=== PATIENT | female | born 1955 | race American Indian/Alaskan Native ===

== ENCOUNTER 2020-02-17 08:41 | Outpatient (CLI) | payer MEDICARE ==
[2020-02-17 09:30] LABS: Basophils # (Auto) 0.1 K/mm3 (0.0-0.1); Basophils % (Auto) 0.5 % (0.0-1.8); Eosinophils # (Auto) 0.1 K/mm3 (0.0-0.4); Eosinophils % (Auto) 0.6 % (0.0-4.3); Hematocrit 39.6 % (30.3-42.9); Lymphocytes # (Auto) 3.5 K/mm3 (1.2-5.4); Lymphocytes % (Auto) 32.2 % (13.4-35.0); Mean Corpuscular HGB Conc 35 % (30-34); Mean Corpuscular Volume 79 fl (79-97); Monocytes # (Auto) 0.6 K/mm3 (0.0-0.8); Monocytes % (Auto) 5.7 % (0.0-7.3); Platelet Count 216 K/mm3 (140-440); Red Blood Count 5.02 M/mm3 (3.65-5.03); Red Cell Distribution Width 15.8 % (13.2-15.2)
[2020-02-17 09:45] LABS: Alanine Aminotransferase 36 units/L (7-56); Albumin 4.5 g/dL (3.9-5); BUN/Creatinine Ratio 12; Blood Urea Nitrogen 11 mg/dL (7-17); Calcium 10.6 mg/dL (8.4-10.2); Chol/HDL Ratio 3.61 %; HDL Cholesterol 55 mg/dL (40-59); Hemolysis Index 43; LDL Cholesterol,Direct 103 mg/dL (50-130)
[2020-02-17 10:11] LABS: ABG Base Excess 1.9 mmol/L (-2.0-3.0); ABG HCO3 25.9 mmol/L (20.0-26.0); ABG Methemoglobin 0.6 % (0.0-1.5); ABG Oxygen Saturation 90.4 % (95.0-99.0); ABG PCO2 38.4 mm Hg; ABG PH 7.446 pH Units (7.350-7.450); ABG PO2 53.5 mm Hg (80.0-90.0)
--- NOTE | 2020-02-17 13:39 | XRay Report ---
CHEST 2 VIEWS INDICATION: POSSIBLE COPD. COMPARISON: None. FINDINGS: Support devices: None. Heart: Within normal limits. Pulmonary vasculature: Normal. Lungs/pleura: The lungs are mildly hyperexpanded. No airspace disease or pleural effusion. No pneumo thorax. Additional findings: None. IMPRESSION: 1. No acute findings. 2. Mild pulmonary hyperinflation. Signer Name: Ivan Pitts MD Signed: 02/17/2020 1:34 PM Workstation Name: [id number]
== END 2020-02-17 08:42 | disposition home or self-care (01) ==
LOC: XRAY 08:41
PROVIDERS: ATTEND Internal Medicine
DX: J98.11 Atelectasis (principal); J44.9 Chronic obstructive pulmonary disease, unspecified; K21.9 Gastro-esophageal reflux disease without esophagitis; R09.02 Hypoxemia; E66.01 Morbid (severe) obesity due to excess calories
CPT/HCPCS: 36415; 71046; 80053; 80061; 82803; 84436; 84443; 85025; 85379